=== PATIENT | male | born 1955 | race Caucasian/White ===

== ENCOUNTER 2018-09-12 05:07 | Emergency (ER) | payer OTHER ==
[2018-09-12 05:50] LABS: BASOPHILS % (AUTO) 0.7 % (0.0-5.0); EOSINOPHILS % (AUTO) 5.3 % (0.0-8.0); HEMATOCRIT 33.7 % (42-54); MEAN CORPUSCULAR HEMOGLOBIN 21.1 pg (27.0-33.0); MEAN CORPUSCULAR HGB CONC 32.4 g/dL (32.0-36.0); MONOCYTES % (AUTO) 7.6 % (3.0-13.0); NEUTROPHILS % (AUTO) 56.4 % (40.0-77.0); PLATELET COUNT (AUTO) 311 K/uL (130-400); RED BLOOD CELL COUNT(AUTO) 5.18 MIL/uL (4.50-6.20); WHITE BLOOD COUNT (AUTO) 7.9 K/uL (4.8-10.8)
[2018-09-12 05:59] LABS: CREATININE 1.2 mg/dL (0.5-1.5); POTASSIUM 3.1 mmol/L (3.5-5.1)
[2018-09-12 06:03] LABS: INR 1.06 (0.85-1.15); PARTIAL THROMBOPLASTIN TIME 26.6 SEC (26.3-35.5); PROTHROMBIN TIME 11.1 SEC (9.6-11.6)
[2018-09-12 06:04] LABS: ALBUMIN 3.6 g/dL (3.5-5.0); BILIRUBIN,TOTAL 0.6 mg/dL (0.2-1.0); TOTAL PROTEIN, SERUM 6.9 g/dL (6.0-8.3)
[2018-09-12] MEDS ORDERED: POTASSIUM CHLORIDE 20 MEQ ERTAB PO ONE (06:16)
== END 2018-09-12 06:55 | disposition home or self-care (01) ==
LOC: EDH 05:07
DX: I87.2 Venous insufficiency (chronic) (peripheral) (principal); E11.9 Type 2 diabetes mellitus without complications; I10 Essential (primary) hypertension; R60.0 Localized edema; E78.00 Pure hypercholesterolemia, unspecified; Z79.899 Other long term (current) drug therapy; Z88.8 Allergy status to other drugs, medicaments and biological substances
CPT/HCPCS: 36415; 80053; 85025; 85610; 85730; 93970